=== PATIENT | male | born 1955 | race Caucasian/White ===

== ENCOUNTER 2016-07-25 09:32 | Day surgery (SDC) | payer OTHER ==
--- NOTE | 2016-07-19 15:43 | HP ---
CC: Dr. Campbell; Dr. Jazlyn Perry; Dr. Romulo Reyes PREOPERATIVE HISTORY AND PHYSICAL: DATE OF ADMISSION: This patient is scheduled for same-day surgery admission by Dr. Campbell on , 07/25/16. DATE OF PREOPERATIVE HISTORY AND PHYSICAL: 07/19/16. ATTENDING SURGEON: Dr. Giuseppe Campbell (dictated by Lj Castillo NP) CHIEF COMPLAINT: Diaphragmatic hernia, longstanding GERD. HISTORY OF PRESENT ILLNESS: The patient is a 60-year-old male referred to Dr. Campbell from [facility] for evaluation of a hiatal hernia. He has longstanding GERD and has been on omeprazole for quite some time and is now on Nexium 40 mg daily. He has a lot of nocturnal regurgitation. He tries to avoid eating too soon before going to bed and tries not to eat heavy an d tries not to eat spicy food. He had a recent upper endoscopy, which did not show any dysplasia or Tyler's and it did reveal a moderate hiatal hernia. 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 Dr. Campbell has di scussed with the patient the nature of hiatal hernia, gastroesophageal reflux disease, the role of s urgery, and has recommended laparoscopic Iraj fundoplication. He discussed the nature of the surg ical procedure, the expected results of the surgery, the relevant risks, benefits, and alternatives, and today I reviewed the typical postoperative care and recovery including dietary guidelines. The patient has had a chance to ask questions and stated that he understands the information and is sat isfied with the answers given to his questions. He will sign surgical consent on the day of surgery . PAST MEDICAL HISTORY: GERD, hiatal hernia. PAST SURGICAL HISTORY: Repair of left arm fracture. MEDICATIONS: 1. Nexium 40 mg p.o. daily. 2. Vitamin D3 1000 International Units daily. ALLERGIES: No known drug allergies. FAMILY HISTORY: No known anesthesia complications, bleeding tendencies, or clotting disorders. 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 He exercises routinely and is a n onsmoker and drinks on average 2 alcoholic beverages per week. REVIEW OF SYSTEMS: He denies any cardiac conditions or complaints. Denies any history of deep vein thrombosis or pulmonary embolism. Denies any respiratory conditions or complaints. Denies any pre vious anesthesia complications. Please see history of present illness for GI complaints and conditi ons. He denies any genitourinary conditions or complaints. He denies any musculoskeletal condition s or complaints. He denies any bleeding tendencies and has never required a blood transfusion. He denies any neurologic conditions or complaints. PHYSICAL EXAMINATION GENERAL SURVEY: The patient is a 60-year-old male, well-developed, overweight, in no acute distress . VITAL SIGNS: Height 67 inches, weight 205 pounds, body mass index 32, blood pressure 134/86, pulse 76 and regular, respiratory rate 16, temperature 97.5 tympanic. HEENT: Benign. NECK: Supple. No cervical lymphadenopathy. No thyromegaly. BACK: No CVA tenderness. LUNGS: Breath sounds bilaterally clear and equal. HEART: Regular rate and rhythm. No murmurs or rubs appreciated. ABDOMEN: Active bowel sounds, obese, soft, nondistended, nontender throughout. No obvious masses, organomegaly, or evidence of ventral hernia. GENITALIA: Deferred. RECTAL: Deferred. EXTREMITIES: Warm without edema or skin ulcerations. NEUROLOGIC: Alert and oriented x3. Steady gait. SKIN: Warm, dry, and intact. IMPRESSION: Diaphragmatic hernia, gastroesophageal reflux disease. PLAN: Same-day surgery admission to Dr. Campbell's service, , 07/25/16, for laparoscopic Niss [place] [id number]/[facility] #: [id number]
[~2016-07-25 09:32] MED LIST: Buffered Lidocaine 1% SYRIN* 3 ML/SYR SYRINGE INTRADERM ONE
[2016-07-25] MEDS ORDERED: ceFAZolin 2 GM PREMIX(*) 2 GM/50 ML BAG IVPB ONE (09:36)
[2016-07-25] MEDS ORDERED: Famotidine IV* 10 MG/ML 2 ML (20 mg) ONE ×2 (09:47→10:52)
[2016-07-25] MEDS ORDERED: Midazolam* 1 MG/ML 2 ML VIAL (2 MG) ONE (09:47)
[2016-07-25] MEDS ORDERED: fentaNYL* 50 MCG/ML 2 ML VIAL (100 MCG VIAL) ONE ×3 (09:47→12:53)
[2016-07-25] MEDS ORDERED: Bupivacaine 0.25% EPI 200,000* 30 ML SDV ONE (10:32)
[2016-07-25] MEDS ORDERED: Propofol* 10 MG/ML 20 ML BTL IV PUSH ONE (10:52)
[2016-07-25] MEDS ORDERED: Rocuronium* 10 MG/ML VIAL ONE ×2 (10:52→12:09)
[2016-07-25] MEDS ORDERED: Dexamethasone IV* 4 MG/ML 1 ML (4 MG) ONE (10:52)
[2016-07-25] MEDS ORDERED: Lidocaine 2% PF * 5 ML VIAL ONE (10:52)
[2016-07-25] MEDS ORDERED: Ondansetron INJ* 2 MG/ML VIAL ONE (10:52)
[2016-07-25] MEDS ORDERED: DiMENhydriNATE IV* 50 MG/ML VIAL IV PUSH PRN (11:06)
[2016-07-25] MEDS ORDERED: HYDROmorphone* 1 MG/ML 1 ML SYR IV PRN (11:06)
[2016-07-25] MEDS ORDERED: Acetaminophen TAB* 325 MG PO PRN (11:06)
[2016-07-25] MEDS ORDERED: Ondansetron INJ* 2 MG/ML VIAL IV PRN (11:06)
[2016-07-25] MEDS ORDERED: Scopolamine 1.5 mg* PATCH TRANSDERM PRN (11:06)
[2016-07-25] MEDS ORDERED: PROCHLORPERAZINE INJ 5 MG/ML 2 ML VIAL IV PRN (11:06)
[2016-07-25] MEDS ORDERED: Desflurane* 240 ML INH ONE (11:12)
[2016-07-25] MEDS ORDERED: Hetastarch in NS* 500 ML IV ONE (12:02)
[2016-07-25] MEDS ORDERED: Ketorolac INJ* 30 MG/ML 1 ML VIAL ONE (12:49)
[2016-07-25] MEDS ORDERED: HYDROmorphone* 1 MG/ML 1 ML SYR ONE (12:53)
[2016-07-25] MEDS ORDERED: Neostigmine Methylsulfate* 2 MG/2 ML SYRINGE ONE (13:04)
[2016-07-25] MEDS: fentaNYL* 50 MCG/ML 2 ML VIAL (100 MCG VIAL) IV PRN ×2 (13:25→13:33)
[2016-07-25] MEDS ORDERED: HYDROcodone/ACET. 7.5/325 LIQ* 15 ML UDC PO PRN (13:44)
[2016-07-25] MEDS ORDERED: HYDROcodone/ACET. 7.5/325 LIQ* 15 ML UDC ONE (14:39)
[2016-07-25 15:10] VITALS: BP 141/93
--- NOTE | 2016-07-25 23:55 | OP ---
DATE OF OPERATION: 07/25/16 - [facility] DATE OF : 53 SURGEON: Giuseppe Campbell MD DIAGNOSTIC RADIOLOGIC TECHNOLOGIST: Edwige Lee NP ANESTHESIOLOGIST: Dr. Geronimo. ANESTHESIA: General anesthetic, local infiltration. PRE-OP DIAGNOSIS: Gastroesophageal reflux disease. POST-OP DIAGNOSIS: Gastroesophageal reflux disease. OPERATIVE PROCEDURE: Laparoscopic Iraj fundoplication. DESCRIPTION OF PROCEDURE: The patient was supine on the operative table. After adequate intravenous sedation, compression stockings, general anesthetic, intravenous antibiotics, Summer Hugger warmer, the abdomen was prepped in the sterile fashion. He was in the lithotomy position with the legs appropriately secured and positioned and with foot board in place. After adequate prep and drape, the umbilicus was entered through a small incision. Insufflation was carried out with carbon dioxide. Additional cannulae 5 mm, right upper quadrant , subxiphoid and left anterior axillary line as well as a 10 mm left subcostal was placed under small stab wounds under direct vision. Areolar tissue was taken down and retracted and the gastrohepatic omentum was entered over the caudate lobe. The right gerardo was identified and this was dissected as well and then circumferential dissection along the crura was carried out to free up the esophagus. Retroesophageal window was created and a Prescott drain was put through there for retraction. Everything was in good condition. The crura were closed retroesophageally around a 58-[place] Bougie. This was with a single suture of 0 Ethibond, which was tied extracorporeally and then addition intracorporeal knots were placed as well. The wrap was then carried out in a standard fashion. A few of the short gastrics were taken down at the Harmonic scalpel to create a little more mobility of the fundus. The fundus was brought around in a standard fashion for wrap and 2 sutures about 1.5 cm apart were carried out. The wrap was tacked to the esophageal wall to prevent slippage. This created a very nice wrap. It was not too tight around the 58-[place] Bougie. Everything was in good condition. Hemostasis was good. The area was suctioned out. Cannulae were removed. Pneumoperitoneum allowed to escape. Umbilical fascia was closed with 0 Polysorb followed by 5-0 Vicryl for all skin incisions. Steri-Strips completed the procedure. He was awakened and brought to Recovery in good condition. No complications. No drains. No pathologic specimen. Sponge and instrument counts were correct. ESTIMATED BLOOD LOSS: 30 mL. CC: Jazlyn Perry MD; Romulo Reyes MD * [id number]/[facility] #: [id number] MTDD
[2016-07-28] MEDS ORDERED: Scopolomine PATCH Remove* 1 NOTE MISC PATCH OFF ONE (11:07)
== END 2016-07-25 15:46 | disposition home or self-care (01) ==
LOC: OR 09:32
PROVIDERS: ATTEND Surgery
DX: K21.9 Gastro-esophageal reflux disease without esophagitis (principal); K44.9 Diaphragmatic hernia without obstruction or gangrene
CPT/HCPCS: A9270-GY; J0690; J1100; J1170; J1885; J2250; J2405; J2704; J3010